=== PATIENT | female | born 1940 | race Caucasian/White ===

== ENCOUNTER 2023-04-25 10:08 | Emergency (ER) | payer MEDICARE, OTHER, SELFPAY ==
[2023-04-25 10:15] VITALS: BP 147/77
[2023-04-25 10:37] LABS: % Basophils 0.4 % (0-2); % Eosinophils 0.2 % (0-6); % Immature Granulocytes 0.3 % (0-0.5); % Lymphocytes 9.6 % (20.5-51.1); % Monocytes 6.2 % (1.7-9.3); % Neutrophils 83.3 % (42.2-75.2); Absolute Basophils 0.1 10^3/uL (0-0.2); Absolute Lymphocytes 1.4 10^3/uL (1.2-3.4); Absolute Monocytes 0.9 10^3/uL (0.1-0.6); Absolute Neutrophils 11.8 10^3/uL (1.4-6.5); Hematocrit 42.9 % (37.0-47.0); Hemoglobin 14.2 g/dL (12.0-16.0); Mean Corp Hgb Conc. 33.1 g/dL (33.0-37.0); Mean Corpuscular Hgb 29.5 pg (27.0-31.0); Nucleated Red Blood Cells % 0 %; Platelet Count 274 10^3/uL (130-400); Red Blood Cell Count 4.82 10^6/uL (4.20-5.40); Red Cell Dist. Width 12.7 % (11.5-14.5); White Blood Cell Count 14.1 10^3/uL (4.8-10.8)
[2023-04-25 10:52] LABS: ALT (SGPT) 21 U/L (0-35); AST (SGOT) 30 U/L (14-36); Alkaline Phosphatase 99 U/L (38-126); Blood Urea Nitrogen 18 mg/dl (7-17); Carbon Dioxide 29 mmol/L (22-30); Chloride 101 mmol/L (98-107); Glucose 126 mg/dl (70-99); Potassium 4.3 mmol/L (3.5-5.1); Sodium 136 mmol/L (135-145); Total Bilirubin 1.4 mg/dl (0.2-1.3); Total Protein 7.1 g/dl (6.3-8.2); eGFR 50.48
[2023-04-25 11:03] LABS: Troponin I < 0.012 ng/ml
[2023-04-25 11:12] VITALS: BP 117/72; BMI 24.4
[2023-04-25 12:00] VITALS: BP 143/83
--- NOTE | 2023-04-25 12:08 | ED.GENMED ---
History of Present Illness
General
Chief Complaint: Fainting/Passed Out
Source: patient and spouse
Exam Limitations: none
Time Seen by Provider: 04/25/23 11:20
Nursing documentation reviewed up to this point in time: agreed with
Travel History
Have you had any contact with someone who has COVID-19?: No
Do you have any symptoms of coronavirus? Fever > 100 degrees, chills, cough, shortness of breath, sore throat, loss of taste or smell, muscle aches, or headache?: Yes
Symptoms:: chills yesterday
History of Present Illness
History of Present Illness:
82-year-old female presenting to the emergency department today with concerns of hypertension hyperlipidemia with concerns of a presyncopal episode where she felt lightheaded when she was standing up going to breakfast slowly fell to the ground and
then hit her left forehead. She claims that she did not fully lose consciousness at any point. Denies any chest pain shortness of breath. Otherwise feels well at this time. Denies numbness weakness, neck pain.
Past History
Past History
ED Past Medical History: Cancer (Basal cell skin CA), HTN, Hypercholesterolemia, Valvular disease (Mitral regurgitation), Psychiatric (depression) and Other (diverticulosis, Bowel obstruction, UTI, Sciatica)
ED Past Surgical History: Appendectomy, Orthopedic (Left trigger finger release, Hip replacement) and Other (Matt cataracts)
Patient has exhibited threatening behavior?: No
PSI?: No
Social History
Tobacco: Non-smoker
Alcohol: None
Personal:
Living: with family
Family History
Family History: Other (Her father who is an alcoholic)
Review of Systems
Review of Systems
Allergies reviewed?: Yes
All Other Systems: ROS reviewed and negative except as documented in HPI and ROS
Phy Exam
Physical Exam
Physical Exam:
GENERAL: Alert , in no apparent distress
EYE: pupils equal and reactive
NECK: Supple, no significant adenopathy.
ENT: Laceration to the left forehead just above the left eyebrow roughly 3 cm in length. No foreign body seen subcutaneous in depth. o/p clr, mmm.
CARDIAC: Regular rate and rhythm .
LUNGS: Clear breath sounds bilaterally, no acute respiratory distress, no wheezes/rales/rhonchi
ABDOMEN: Soft, without focal tenderness, no r/g, no cvat
NEUROLOGICAL: Alert and oriented, no focal neuro deficits
SKIN: Warm and dry, skin intact.
MUSCULOSKELETAL: No edema, well perfused.
PSYCH: Normal and appropriate interaction.
Course
Orders/Labs/Results
Orders:
Orders
04/25/23 10:21
ECG [Electrocardiogram (*1)] Urgent
Reason for Study: Syncope
04/25/23 10:22
EKG- Treatment ONCE
04/25/23 10:28
Complete Blood Count/With Diff Urgent
Comprehensive Metabolic Panel Urgent
Troponin I Urgent
04/25/23 11:32
CT Head W/o Iv Contrast Urgent
Comment:
Reason For Exam: fall hit left forehad,
Abnormal Lab Results
04/25/23
10:28
WBC 14.1 H 10^3/uL
(4.8-10.8)
MPV 11.0 H fL
(7.4-10.4)
Absolute Neuts (auto) 11.8 H 10^3/uL
(1.4-6.5)
Absolute Monos (auto) 0.9 H 10^3/uL
(0.1-0.6)
Neutrophils % 83.3 H %
(42.2-75.2)
Lymphocytes % 9.6 L %
(20.5-51.1)
BUN 18 H mg/dl
(7-17)
Creatinine 1.1 H mg/dL
(0.6-1.0)
Glucose 126 H mg/dl
(70-99)
Total Bilirubin 1.4 H mg/dl
(0.2-1.3)
04/25/23 10:28
04/25/23 10:28
Vital Signs
Initial and Last Documented VS:
Initial Vital Signs
Temp Pulse Resp BP Pulse Ox
97.6 F 72 16 147/77 98
04/25/23 10:15 04/25/23 10:15 04/25/23 10:15 04/25/23 10:15 04/25/23 10:15
Last Documented Vital Signs
Temp Pulse Resp BP Pulse Ox
97.6 F 93 18 154/69 99
04/25/23 10:15 04/25/23 14:19 04/25/23 14:19 04/25/23 14:19 04/25/23 14:19
Procedures
Laceration Closure
Left Upper Lateral Eye brow:
Status of Wound: clean
Size of Wound in cm: 3
Description of Wound Edges: sharp
Preparation: cleaned with saline
Anesthesia: 1% Lidocaine with epi
Revision/Debridement: routine- no revision and irrigate-direct pressure
Wound exploration: explored to base- no FB and no tendon involvement
Type of Closure: single layer closure
Skin Closure Material: 6-0 nylon
Number of sutures: 5
MDM/Problems Addressed
MDM/Problems Addressed:
82-year-old female presenting to the emergency department today with concerns of lightheadedness that caused her to fall to the ground hitting her left forehead. Never fully lost consciousness. No nausea vomiting no chest pain shortness of breath.
Has had a similar episode in the past. Labs showing white count of 14.1. Patient does not have any infectious symptoms. Creatinine mildly elevated but at patient's baseline otherwise no significant electrolyte problems or apparent cardiac issues
EKG is nonischemic no signs of arrhythmia. Troponin negative. Patient very well-appearing here. No symptoms throughout ER stay. Patient's laceration closed with 5 nonabsorbable sutures will follow-up in 7 days for removal. Return precautions
given. No signs of life-threatening cause of syncopal episode earlier today.
*Critical Care Note
Total Time (30-74mins, 75-104mins- exclusive of procedures): Not Applicable
ED Attending Note
-
Portions of this chart may have been created with voice recognition software.� Occasional wrong word or��sound alike� substitutions may have occurred due to the inherent limitations of voice recognition software.
Discharge Plan
Departure
Patient Disposition: Home (Routine Discharge)
Date of Disposition: 04/25/23
Time of Disposition: 14:00
Patient with high blood pressure during this ER visit?: No
Condition: Good
Covid-19: Not Applicable
Discharge Problem:
Forehead laceration, Fall
Instructions: Laceration Repair With Stitches (DC), Syncope (Fainting) (DC)
Prescriptions:
No Action
multivitamin [Daily Vitamin] 1 EACH tablet
1 ea PO DAILY
naproxen sodium [Aleve] 220 MG tablet
440 mg PO PRN PRN (Reason: pain)
losartan 25 MG tablet
25 mg PO DAILY
oxycodone-acetaminophen [Percocet] 5-325 mg tablet
0.5 tab PO TID PRN (Reason: Pain) Qty: 7 0RF
Referrals:
Martin Ramsey MD [Family Provider] -
Activity Restrictions/Additional Instructions:
You came to the emergency department today after a presyncopal episode and laceration to your left forehead. Laceration was closed with 5 nonabsorbable sutures. Please keep the area clean covered and follow-up in 7 days for suture removal.
Additionally your workup here did not show any emergent findings. Return to the emergency department for any worsening, new or concerning symptoms.
Interventions
Interventions:
*Risk Screen - Suicide Last Done: 04/25/23 11:13
*General Assessment Last Done: 04/25/23 11:13
*Neglect/Abuse Screening Last Done: 04/25/23 11:13
ED- Fall Risk Assessment Last Done: 04/25/23 11:13
*ED COVID-19 Vaccine History Last Done: 04/25/23 11:13
*Nursing Disposition Last Done: 04/25/23 14:19
ED- Cardiac Assessment Last Done: 04/25/23 11:13
ED- Neurological Assessment Last Done: 04/25/23 11:13
Discharge Date and Time
Discharge Date/Time: 04/25/23 14:20
[2023-04-25 14:19] VITALS: BP 154/69
== END 2023-04-25 14:20 | disposition home or self-care (01) ==
LOC: EMR 10:08
PROVIDERS: Student in an Organized Health Care Education/Training Program; EMERGENCY PHYSICIAN Emergency Medicine; FAMILY PHYSICIAN Family Medicine
DX: R55 Syncope and collapse (principal); I10 Essential (primary) hypertension; E78.00 Pure hypercholesterolemia, unspecified; I38 Endocarditis, valve unspecified; I34.0 Nonrheumatic mitral (valve) insufficiency; F32.A Depression, unspecified; Z85.828 Personal history of other malignant neoplasm of skin; Z87.440 Personal history of urinary (tract) infections; Z90.49 Acquired absence of other specified parts of digestive tract; S01.81XA Laceration without foreign body of other part of head, initial encounter
CPT/HCPCS: 99284; 12013; 70450; 80053; 84484; 85025; 93005

== ENCOUNTER → 2023-05-13 09:15 | Outpatient (REF) | payer MEDICARE, OTHER, SELFPAY | LOC: RCS 09:15 | PROVIDERS: ATTENDING PHYSICIAN Physician Assistant Medical; FAMILY PHYSICIAN Family Medicine | DX: R55 Syncope and collapse (principal); I10 Essential (primary) hypertension; E78.5 Hyperlipidemia, unspecified | CPT/HCPCS: 93225; 93226 ==

== ENCOUNTER → 2023-05-24 09:03 | Outpatient (REF) | payer MEDICARE, OTHER, SELFPAY | LOC: RCS 09:03 | PROVIDERS: ATTENDING PHYSICIAN Physician Assistant Medical | DX: R55 Syncope and collapse (principal); I10 Essential (primary) hypertension; E78.5 Hyperlipidemia, unspecified | CPT/HCPCS: 93306 ==

== ENCOUNTER → 2024-02-14 15:50 | Outpatient (REF) | payer MEDICARE, OTHER, SELFPAY | LOC: WDC 15:50 | PROVIDERS: ATTENDING PHYSICIAN Family Medicine | DX: Z12.31 Encounter for screening mammogram for malignant neoplasm of breast (principal) | CPT/HCPCS: 77063; 77067 ==

== ENCOUNTER 2024-05-03 06:17 | Day surgery (SDC) | payer MEDICARE, OTHER, SELFPAY | END 2024-05-03 11:24 | disposition home or self-care (01) | LOC: GI 06:17 | PROVIDERS: ATTENDING PHYSICIAN Internal Medicine Gastroenterology | DX: Z12.11 Encounter for screening for malignant neoplasm of colon (principal); K64.8 Other hemorrhoids; K57.30 Diverticulosis of large intestine without perforation or abscess without bleeding; D12.3 Benign neoplasm of transverse colon; D12.0 Benign neoplasm of cecum; D12.2 Benign neoplasm of ascending colon; D12.4 Benign neoplasm of descending colon; Z86.0100 Personal history of colon polyps, unspecified | CPT/HCPCS: 45385; 45381; 45380; 88305 ==

== ENCOUNTER 2024-11-16 11:19 | Emergency (ER) | payer MEDICARE, OTHER, SELFPAY ==
[2024-11-16 11:20] VITALS: BP 130/72
[2024-11-16 12:12] VITALS: BP 135/84
--- NOTE | 2024-11-16 12:26 | ED.GENMED ---
History of Present Illness
General
Chief Complaint: Abdominal Symptoms
Source: patient
Exam Limitations: none
Time Seen by Provider: 11/16/24 12:15
History of Present Illness
History of Present Illness:
Patient complaining of lower abdominal discomfort. Mucousy stool. Some mild blood in the stool the last few days. Some mild crampy lower abdominal pain. Some anorexia. Has been on Cipro followed by a sulfa antibiotic for UTI however the
symptoms started prior to that. No unusual travel history. No history of same.
Past History
Past History
ED Past Medical History: Cancer (Basal cell skin CA), HTN, Hypercholesterolemia, Valvular disease (Mitral regurgitation), Psychiatric (depression) and Other (diverticulosis, Bowel obstruction, UTI, Sciatica)
ED Past Surgical History: Appendectomy, Orthopedic (Left trigger finger release, Hip replacement) and Other (Matt cataracts)
Patient has exhibited threatening behavior?: No
PSI?: No
Social History
Tobacco: Non-smoker
Alcohol: None
Personal:
Living: with family
Family History
Family History: Other (Her father who is an alcoholic)
Review of Systems
Review of Systems
All Other Systems: Not applicable
Respiratory: Reports no symptoms
Cardiac: Reports no symptoms
Phy Exam
Physical Exam
Physical Exam:
GENERAL: Alert and oriented in no apparent distress
EYE: Orbits normal.
NECK: Supple
CARDIAC: Regular rate and rhythm without any obvious murmurs.
LUNGS: Clear breath sounds,normal
ABDOMEN: Soft, minimal right lateral lower quadrant tenderness. No rebound or guarding no mass or hernia
NEUROLOGICAL: Alert and oriented , grossly non-focal
SKIN: Warm and dry, no rash or lesion, no discoloration, skin intact.
MUSCULOSKELETAL: No edema,no deformity.Good color
PSYCH: Normal and appropriate interaction.
Course
Orders/Labs/Results
Orders:
Orders
11/16/24 12:17
IV Insert/Care/Rem.- Treatment PRN
11/16/24 12:20
Complete Blood Count/With Diff Urgent
Comprehensive Metabolic Panel Urgent
Lipase Urgent
11/16/24 12:25
0.9% Sodium Chloride 500 ml [Nss] 500 ml IV BOLUS
11/16/24 12:26
CT Abd/Pel (IV only)-DH only Urgent
Comment:
Reason For Exam: Lower abdominal pain/diarrhea
11/16/24 14:17
STOOL [C difficile Antigen & Toxins] Urgent
LARRY Source: Feces/Stool
Specimen Description:
Date Specimen was Collected: 11/16/24
Time Specimen was Collected: 14:16
Stool Culture Urgent
LARRY Source: Feces/Stool
Specimen Description:
Date Specimen was Collected: 11/16/24
Time Specimen was Collected: 14:16
11/16/24 15:59
Fidaxomicin [Dificid] 200 mg PO NOW STA
Abnormal Lab Results
11/16/24
12:20
WBC 16.7 H 10^3/uL
(4.8-10.8)
MPV 11.1 H fL
(7.4-10.4)
Abs Immat Gran (auto) 0.1 H 10^3/uL
(0-0.05)
Absolute Neuts (auto) 14.4 H 10^3/uL
(1.4-6.5)
Absolute Monos (auto) 1.0 H 10^3/uL
(0.1-0.6)
Neutrophils % 86.1 H %
(42.2-75.2)
Lymphocytes % 7.2 L %
(20.5-51.1)
Creatinine 1.1 H mg/dL
(0.6-1.0)
Glucose 104 H mg/dl
(70-99)
11/16/24 12:20
11/16/24 12:20
Vital Signs
Initial and Last Documented VS:
Initial Vital Signs
Temp Pulse Resp BP Pulse Ox
98.5 F 77 20 130/72 95
11/16/24 11:20 11/16/24 11:20 11/16/24 11:20 11/16/24 11:20 11/16/24 11:20
Last Documented Vital Signs
Temp Pulse Resp BP Pulse Ox
98.5 F 77 17 115/103 95
11/16/24 11:20 11/16/24 15:00 11/16/24 15:00 11/16/24 15:00 11/16/24 15:00
MDM/Problems Addressed
Differential Diagnosis Includes:
Symptoms most consistent with colitis. Would have to entertain C. difficile colitis although the symptoms started prior to antibiotics. Nonsurgical abdomen. Workup in progress. Stool culture C. difficile CT scan and labs fluids.
*Pulse Oximetry
SaO2: 95
Oxygen Mode of Delivery: Room air
Patient hypoxic: no
*Critical Care Note
Total Time (30-74mins, 75-104mins- exclusive of procedures): Not Applicable
Data Reviewed
Review of Other/Old Records Reveals: Labs, Records and Testing
Update Note
Update Note:
Patient comfortable and nontoxic. Reasonable and expected leukocytosis. Nonsurgical abdomen. Patient is comfortable with outpatient management. Expect colitis by CT. Will prescribe Dificid but also backup vancomycin if the Dificid becomes too
expensive. She was given a prescription
Copy of report given to follow-up renal lesion
ED Attending Note
-
Portions of this chart may have been created with voice recognition software.� Occasional wrong word or��sound alike� substitutions may have occurred due to the inherent limitations of voice recognition software.
Discharge Plan
Departure
Patient Disposition: Home (Routine Discharge)
Date of Disposition: 11/16/24
Time of Disposition: 16:31
Patient with high blood pressure during this ER visit?: Yes
Discharge Problem:
C. difficile colitis, Hypertension, Renal lesion
Instructions: Colitis (DC), C. difficile infection - ED (DC), BLOOD PRESSURE
Prescriptions:
New
fidaxomicin [Dificid] 200 mg tablet
200 mg PO BID 10 Days Qty: 20 0RF
vancomycin 125 mg capsule
125 mg PO Q6H 10 Days Qty: 40 0RF
No Action
multivitamin [Daily Vitamin] 1 EACH tablet
1 ea PO DAILY
naproxen sodium [Aleve] 220 MG tablet
440 mg PO PRN PRN (Reason: pain)
losartan 25 MG tablet
25 mg PO DAILY
oxycodone-acetaminophen [Percocet] 5-325 mg tablet
0.5 tab PO TID PRN (Reason: Pain) Qty: 7 0RF
Referrals:
Martin Ramsey MD [Family Provider, Family Practice] - Follow up in 2-3 days
Activity Restrictions/Additional Instructions:
The prescription for the stronger/better coverage for this infection was sent to your pharmacy. If this becomes too expensive with the coupon, I gave you a backup written prescription for the alternative. You do not take both
Follow-up MRI of your kidney/renal protocol. This can be arranged through your primary physician
Interventions
Interventions:
*Risk Screen - Suicide Last Done: 11/16/24 11:20
*General Assessment Last Done: 11/16/24 11:20
*Neglect/Abuse Screening Last Done: 11/16/24 12:06
*ED- Fall Risk Assessment Last Done: 11/16/24 12:06
*ED COVID-19 Vaccine History Last Done: 11/16/24 12:06
*Nursing Disposition Last Done: 11/16/24 17:00
BC-Yhwmqn-Cccucdbhyz Assessment Last Done: 11/16/24 12:06
Discharge Date and Time
Discharge Date/Time: 11/16/24 17:02
Print Language: MOHAWK
[2024-11-16 12:33] LABS: Hematocrit 41.5 % (37.0-47.0); Hemoglobin 13.9 g/dL (12.0-16.0); Mean Corp Hgb Conc. 33.5 g/dL (33.0-37.0); Mean Corpuscular Volume 88.1 fL (81.0-99.0); Nucleated Red Blood Cells % 0 %; Platelet Count 269 10^3/uL (130-400); Red Cell Dist. Width 13.2 % (11.5-14.5)
[2024-11-16] MEDS: NSS 500 IV (12:48)
[2024-11-16 13:00] VITALS: BP 118/73
[2024-11-16 13:03] LABS: ALT (SGPT) 19 U/L (0-35); AST (SGOT) 27 U/L (14-36); Albumin 4.1 g/dl (3.5-5.0); Alkaline Phosphatase 93 U/L (38-126); Blood Urea Nitrogen 16 mg/dl (7-17); Calcium 9.5 mg/dl (8.4-10.2); Carbon Dioxide 26 mmol/L (22-30); Chloride 102 mmol/L (98-107); Glucose 104 mg/dl (70-99); Lipase 141 U/L (23-300); Potassium 4.2 mmol/L (3.5-5.1); Sodium 135 mmol/L (135-145); Total Protein 7.1 g/dl (6.3-8.2); eGFR 49.86
[2024-11-16 14:14] VITALS: BP 98/79
[2024-11-16 15:00] VITALS: BP 115/103
[2024-11-16] MEDS: DIFICID 200 MG PO (16:21)
--- NOTE | 2024-11-16 16:34 | CM ---
Received a call from Riya from Pharmacy informing me pt is prescribed Dificid. I called her pharmacy [facility] and pharmacist told me it is special order and they will not be able to get it until Tuesday. Discussed with Dr Gooden, he sent
Dificid script to the pharmacy but us also giving her a script for Vancomycin. I met with pt and her , informed them [facility] will not be albe to get Dificid until Tuesday and it can be very expensive. I offered to check cost with [facility] Medicare
but she declined and sais she would take the Vancomycin. Dr Gooden aware.
== END 2024-11-16 17:02 | disposition home or self-care (01) ==
LOC: EMR 11:19
PROVIDERS: EMERGENCY PHYSICIAN Emergency Medicine; FAMILY PHYSICIAN Family Medicine
DX: A04.72 Enterocolitis due to Clostridium difficile, not specified as recurrent (principal); I10 Essential (primary) hypertension; N28.9 Disorder of kidney and ureter, unspecified; E78.00 Pure hypercholesterolemia, unspecified; Z90.49 Acquired absence of other specified parts of digestive tract
CPT/HCPCS: 96360; 99284; 74177; 80053; 83690; 85025; 87045; 87046; 87324; 87427; 87449; Q9967

== ENCOUNTER → 2024-12-07 11:19 | Outpatient (REF) | payer MEDICARE, OTHER, SELFPAY | LOC: RAD 11:19 | PROVIDERS: ATTENDING PHYSICIAN Family Medicine | DX: R93.89 Abnormal findings on diagnostic imaging of other specified body structures (principal) | CPT/HCPCS: 76830; 76856 ==

== ENCOUNTER → 2025-01-30 09:10 | Outpatient (REF) | payer MEDICARE, OTHER, SELFPAY | LOC: PAVMRI 09:10 | PROVIDERS: ATTENDING PHYSICIAN Family Medicine | DX: N28.89 Other specified disorders of kidney and ureter (principal) | CPT/HCPCS: 74183; A9575 ==

== ENCOUNTER → 2025-03-14 08:52 | Outpatient (REF) | payer MEDICARE, OTHER, SELFPAY | LOC: REG 08:52 | PROVIDERS: ATTENDING PHYSICIAN Emergency Medicine | DX: R19.7 Diarrhea, unspecified (principal) | CPT/HCPCS: 87045; 87046; 87077; 87324; 87328; 87329; 87427; 87449 ==